=== PATIENT | male | born 1950 | race Caucasian/White ===

== ENCOUNTER → 2017-07-08 | Outpatient (CLI) | payer MEDICARE, OTHER ==
[~2017-07-08] MED LIST: ASPI-1471 PO; ATOR40TA24 PO; CAR6.25 PO; LISI5TAB25 PO
[2017-07-08 16:11] LABS: PLATELET COUNT, AUTOMATED 184 K/uL (150-450)
== END ==
LOC: LAB 15:19
PROVIDERS: ATTEND Internal Medicine
DX: I46.9 Cardiac arrest, cause unspecified (principal); R19.7 Diarrhea, unspecified; E78.5 Hyperlipidemia, unspecified
CPT/HCPCS: 36415; 81001; 82040; 82150; 82247; 82274; 82310; 82374; 82435; 82565; 82947; 83630; 83690; 84075; 84132; 84155; 84295; 84443; 84450; 84460; 84520; 85025; 87045; 87205; 87324; 87449

== ENCOUNTER → 2018-04-30 | Outpatient (CLI) | payer MEDICARE, OTHER | LOC: LAB 12:03 | PROVIDERS: ATTEND Internal Medicine | DX: I21.4 Non-ST elevation (NSTEMI) myocardial infarction (principal); I25.10 Atherosclerotic heart disease of native coronary artery without angina pectoris; E87.6 Hypokalemia; E78.5 Hyperlipidemia, unspecified | CPT/HCPCS: 36415; 82465; 83718; 84478 ==